=== PATIENT | male | born 1965 | race Caucasian/White ===

== ENCOUNTER 2016-10-28 11:51 | Observation (INO) | payer BC ==
[2016-10-28] MEDS ORDERED: Aspirin 81 MG Tab.Chew PO ONE (12:12)
[2016-10-28] MEDS ORDERED: Metoprolol Tartrate 5 MG/5 ML SDV IVPUSH ONE (13:34)
[2016-10-28] MEDS ORDERED: Zolpidem 5 MG Tab PO PRN (15:26)
[2016-10-28] MEDS ORDERED: ALPRAZolam 0.25 MG Tab PO PRN (15:29)
[2016-10-28] MEDS ORDERED: LOSARTAN 50 MG PO SCH (15:30)
[2016-10-28] MEDS: METOPROLOL SUCCINATE 25 MG PO SCH (16:24)
[2016-10-28] MEDS: AMLODIPINE 5 MG PO SCH (16:24)
--- NOTE | 2016-10-28 18:16 | CR ---
DATE OF SERVICE: 10/28/16 CLINICAL DATA: chest pain AP PORTABLE CHEST Comparison is made to a prior exam dated 09/08/11. The patient has taken a poor inspiration. The heart size is normal. There is calcification of the aortic arch. The lungs are clear. No pneumothorax. No pleural effusions. No areas of consolidation. No other significant findings. IMPRESSION: No evidence of acute intrathoracic disease. [id number] [facility]
--- NOTE | 2016-10-28 18:21 | CT ---
DATE OF SERVICE: 10/28/16 CLINICAL DATA: left arm weakness UNENHANCED BRAIN CT Multislice acquisition through the brain without IV contrast was performed. Comparison is made to a prior exam dated 08/11/14. No masses or mass effect. No intracranial hemorrhage. No evidence of acute or subacute infarct. No osseous abnormalities. IMPRESSION: No acute intracranial abnormalities. [id number] [facility]
[2016-10-28] MEDS ORDERED: PRAVASTATIN 20 MG PO SCH (20:00)
[2016-10-28] MEDS: ELIQUIS 5 MG PO SCH (20:30)
[2016-10-28] MEDS ORDERED: Acetaminophen 500 MG Tab PO PRN (22:30)
[2016-10-29 06:53] VITALS: BP 135/95
[2016-10-29] MEDS ORDERED: Sodium Chloride 0.9% 10 ML Syringe FLUSH PRN (08:46)
[2016-10-29] MEDS: METOPROLOL SUCCINATE 25 MG PO SCH (09:08)
[2016-10-29] MEDS: AMLODIPINE 5 MG PO SCH (09:10)
[2016-10-29] MEDS: ELIQUIS 5 MG PO SCH (09:10)
[2016-10-29] MEDS ORDERED: Pravastatin 20 MG Tab PO SCH (20:00)
[2016-10-29] MEDS ORDERED: Non-Formulary Medication 1 Each (Apixaban 5 MG) PO SCH (20:00)
[2016-10-30] MEDS ORDERED: Metoprolol Succinate 25 MG Tab.ER PO SCH (08:00)
[2016-10-30] MEDS ORDERED: amLODIPine 5 MG Tab PO SCH (08:00)
[2016-10-30] MEDS ORDERED: Losartan 50 MG Tab PO SCH (08:00)
== END 2016-10-29 11:45 | disposition home or self-care (01) ==
LOC: LB.ED 11:51 → LB.MS 14:10
PROVIDERS: ADMIT Internal Medicine; ATTEND Internal Medicine
DX: R00.0 Tachycardia, unspecified (principal); I45.10 Unspecified right bundle-branch block; I10 Essential (primary) hypertension; Z79.899 Other long term (current) drug therapy
CPT/HCPCS: 36415; 70450; 71010; 80053; 80307; 81001; 84484; 85025; 85379; 85610; 93005; 93306; 96374; 99285; A9270; G0480; G0378; J3490

== ENCOUNTER 2017-12-14 06:35 | Emergency (ER) | payer BC ==
--- NOTE | 2017-12-14 08:21 | EDM.PDOC ---
ED HPI GENERAL MEDICAL PROBLEM - General Chief Complaint: General Stated Complaint: POSSIBLE BLOOD CLOT Time Seen by Provider: 12/14/17 07:30 Source of Information: Reports: Patient History Limitations: Reports: No Limitations - History of Present Illness INITIAL COMMENTS - FREE TEXT/NARRATIVE: According to patient he has chronic skin itching over the anterior legs for a while. he does get infection in his legs and needs antibiotics. He is here in the emergency room today as he has noted pain in his right leg,thigh and groin and he has history of DVT and is on Eliquis. But he skipped a day of Elliquis an dis concerned about DVT. No fever or chills. No SOB or chest pain. No open wound on the legs. Pt has been using several OTC steroid ointment on the legs and also some prescription steroids in the past.No other concerns. Duration: Week(s): (1), Getting Worse Location: Reports: Lower Extremity, Right Quality: Reports: Ache Severity: Mild Improves with: Reports: None Worsens with: Reports: None Associated Symptoms: Denies: Confusion, Chest Pain, Cough, Diaphoresis, Fever/ Chills, Headaches, Loss of Appetite, Nausea/Vomiting, Rash, Seizure, Shortness of Breath, Syncope, Weakness Right Leg Pain Score (Numeric/FACES): 8 - Related Data Allergies Allergy/AdvReac Type Severity Reaction Status Date / Time No Known Allergies Allergy Verified 10/28/16 11:56 Home Meds: Home Meds Apixaban [Eliquis] 5 mg PO BID 10/28/16 [History] Losartan [Cozaar] 50 mg PO DAILY 10/28/16 [History] Metoprolol Succinate [Toprol XL] 25 mg PO DAILY 10/28/16 [History] Pravastatin Sodium [Pravachol] 20 mg PO QPM 10/28/16 [History] amLODIPine Besylate [Amlodipine Besylate] 5 mg PO DAILY 10/28/16 [History] Past Medical History Cardiovascular History: Reports: Blood Clots/VTE/DVT, Hypertension, Other (See Below) Other Cardiovascular History: DVTx4 Musculoskeletal History: Reports: Back Pain, Chronic, Other (See Below) Other Musculoskeletal History: surgery for degloved right pointer finger Neurological History: Reports: Concussion, Other (See Below) Other Neuro History: Fell and hit head last year Social & Family History - Tobacco Use Smoking Status *Q: Never Smoker - Alcohol Use Days Per Week of Alcohol Use: 1 Number of Drinks Per Day: 6 Total Drinks Per Week: 6 - Recreational Drug Use Recreational Drug Use: Yes Drug Use in Last 12 Months: No ED ROS GENERAL - Review of Systems Review Of Systems: See Below Constitutional: Denies: Fever, Chills, Night Sweats, Diaphoresis HEENT: Denies: Rhinitis, Throat Pain, Throat Swelling, Vision Change Respiratory: Denies: Shortness of Breath, Wheezing, Cough, Sputum Cardiovascular: Denies: Chest Pain, Lightheadedness GI/Abdominal: Denies: Abdominal Pain, Nausea, Vomiting : Denies: Dysuria, Flank Pain Musculoskeletal: Denies: Joint Pain, Joint Swelling Skin: Reports: Bruising, Pruritis, Rash, Erythema Neurological: Denies: Confusion, Dizziness, Headache ED EXAM, GENERAL - Physical Exam Exam: See Below Exam Limited By: No Limitations General Appearance: Alert, WD/WN, No Apparent Distress Eye Exam: Bilateral Eye: EOMI, PERRL Ears: Normal External Exam, Normal Canal, Hearing Grossly Normal, Normal TMs Ear Exam: Bilateral Ear: Auricle Normal, Canal Normal, TM normal Nose: Normal Inspection, Normal Mucosa, No Blood Throat/Mouth: Normal Inspection, Normal Lips, Normal Teeth, Normal Gums, Normal Oropharynx, Normal Voice, No Airway Compromise Head: Atraumatic, Normocephalic Neck: Normal Inspection, Supple, Non-Tender, Full Range of Motion Respiratory/Chest: No Respiratory Distress, Lungs Clear, Normal Breath Sounds, No Accessory Muscle Use, Chest Non-Tender Cardiovascular: Normal Peripheral Pulses, Regular Rate, Rhythm, No Edema, No Gallop, No JVD, No Murmur, No Rub GI/Abdominal: Normal Bowel Sounds, Soft, Non-Tender, No Organomegaly, No Distention, No Abnormal Bruit, No Mass Skin Exam: Warm, Other (Both legs: there is large areas of erythem spreading form distal anterior leg all the way into upper leg anteriorly. there are skin abrasion and scabing from chronic excoriations. Mild tenderness to palpation. No abscess felt.) Lymphatic: Adenopathy (pt does have lymphangitis whih start from the large area of erythema over the right leg and follows medial as a pink line extending into medial aspect of the thigh and the groin and ends. Also He has palable right inguinal lymphnodes 1-2 cms soft and tender, both horizontal and vertical chains.) Course - Vital Signs Text/Narrative:: Pt has right leg superficial cellulitis, with lymphangitis and inguinal lymphadenitis.Pt's CBC show white count of 10 and his D-dimer is negative. Pt reassured that he has right anterior leg superficial cellulitis with lymphangitis of the right lower extremity with inguinal lymphadenitis as a sequel of the infection. I have stressed to patient the cause of this infection is his recurrent scratching of the legs. In winter skin gets dry and itchy and patient scratches the skin until he gets open wound and cause cellulitis of the legs, as he claims he has been treated for this several times. I have stress to patient that if he stops scratching the cycle of this infection can be stopped. Advised to apply vaseline petroleum jelly 2-3 times daily to the rash regularly even after redness clear to keep the skin intact. Meanwhile I have started him on levaquin 500mg twice daily for 10 days. Advised to followup in clinic if symptoms worsen. Last Recorded V/S: Last Vital Signs Temp 99.2 F 12/14/17 07:27 Pulse 72 12/14/17 07:27 Resp 20 12/14/17 07:27 BP 134/81 12/14/17 07:27 Pulse Ox 95 12/14/17 07:27 - Orders/Labs/Meds Labs: Laboratory Tests 12/14/17 12/14/17 Range/Units 07:05 07:05 WBC 10.6 (4.0-11.0) K/uL RBC 4.86 (4.50-6.50) M/uL Hgb 14.3 (13.0-18.0) g/dL Hct 42.6 (40.0-54.0) % MCV 88 (76-96) fL MCH 29.4 (27.0-32.0) pg MCHC 33.6 (31.0-35.0) g/dL RDW 13.6 (11.0-16.0) % Plt Count 238 (150-400) K/uL MPV 9.4 (6.0-10.0) fL Neut % (Auto) 75.7 H (45.0-70.0) % Lymph % (Auto) 11.8 L (20.0-40.0) % [place] % (Auto) 9.7 (3.0-10.0) % Eos % (Auto) 2.4 (1.0-5.0) % Baso % (Auto) 0.4 (0.0-0.5) % Neut # (Auto) 8.02 H (2.00-7.50) K/uL Lymph # (Auto) 1.25 L (1.50-4.00) K/uL [place] # (Auto) 1.03 H (0.20-0.80) K/uL Eos # (Auto) 0.25 (0.04-0.40) K/uL Baso # (Auto) 0.04 (0.02-0.10) K/uL D-Dimer, Quantitative 238 (0-400) ng/mL Departure - Departure Time of Disposition: 08:00 Disposition: Home, Self-Care 01 Condition: Fair Clinical Impression: Cellulitis of right leg, Acute lymphangitis of right lower extremity, Inguinal lymphadenitis - Discharge Information Instructions: Lymphangitis, Adult, Cellulitis, Adult, [id number] Referrals: PCP,None [Primary Care Provider] - Forms: ED Department Discharge Additional Instructions: Vasoline petroleum jelly to bilat lower legs 2x a day. Take Levoquin 500mg daily for 10 days. return to primary MD if any problems - Problem List & Annotations (1) Acute lymphangitis of right lower extremity SNOMED Code(s): 7860566 Code(s): L03.125 - ACUTE LYMPHANGITIS OF RIGHT LOWER LIMB Status: Acute (2) Cellulitis of right leg SNOMED Code(s): 545277599 Code(s): L03.115 - CELLULITIS OF RIGHT LOWER LIMB Status: Acute (3) Inguinal lymphadenitis SNOMED Code(s): 17501214 Code(s): I88.9 - NONSPECIFIC LYMPHADENITIS, UNSPECIFIED Status: Acute - Problem List Review Problem List Initiated/Reviewed/Updated: Yes - Assessment/Plan Assessment:: Right leg cellulitis of right leg with lymphangitis and right inguinal lymphadenitis Plan: Pt has right leg superficial cellulitis, with lymphangitis and inguinal lymphadenitis.Pt's CBC show white count of 10 and his D-dimer is negative. Pt reassured that he has right anterior leg superficial cellulitis with lymphangitis of the right lower extremity with inguinal lymphadenitis as a sequel of the infection. I have stressed to patient the cause of this infection is his recurrent scratching of the legs. In winter skin gets dry and itchy and patient scratches the skin until he gets open wound and cause cellulitis of the legs, as he claims he has been treated for this several times. I have stress to patient that if he stops scratching the cycle of this infection can be stopped. Advised to apply vaseline petroleum jelly 2-3 times daily to the rash regularly even after redness clear to keep the skin intact. Meanwhile I have started him on levaquin 500mg twice daily for 10 days. elevation of the leg and tylenol as needed for pain.Advised to followup in clinic if symptoms worsen.
[2017-12-14 09:48] VITALS: BP 133/98
== END 2017-12-14 08:04 | disposition home or self-care (01) ==
LOC: LB.ED 06:35
DX: L03.125 Acute lymphangitis of right lower limb (principal); I88.9 Nonspecific lymphadenitis, unspecified; L03.115 Cellulitis of right lower limb; Z79.899 Other long term (current) drug therapy
CPT/HCPCS: 36415; 85025; 85379; 99283

== ENCOUNTER 2019-07-07 12:59 | Emergency (ER) | payer BC ==
[2019-07-07 13:14] VITALS: PULSE 66
[2019-07-07 13:21] VITALS: BP 135/81
--- NOTE | 2019-07-07 20:36 | ER ---
REASON FOR EMERGENCY ROOM VISIT: Right leg swelling and redness. 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 He had an initial bout of deep vein thrombosis at that time, which was treated with Coumadin and he discontinued this after 6 months' time. Shortly thereafter, he had a recurrent DVT and was again placed on Coumadin. By 2004, he once again discontinued his Coumadin and shortly thereafter developed a deep vein thrombosis. He has had 1 or 2 episodes in addition to this, but he has been on Eliquis for the past 2 years and has not had any recurrent episodes of deep vein thrombosis. For the past 5 years or so, he has had trouble with varying degrees of cellulitis and dermatitis involving his lower legs. He has had intermittent swelling off and on. He has tried compression stockings and they make his legs itch even more. He has been to a dietetic technician registered and currently is on an antifungal cream. He has been on antifungal cream for 2 weeks' time. This was prescribed to him by dietetic technician registered whom he has seen in [place]. After about 10 days' use of this cream, he had an itchy dermatitis involving his right lower leg had all but cleared up. However, he has noticed in the past day or 2, some increased redness and itching and this has been somewhat uncomfortable and he has noted some mild increase in edema of his right lower leg. He has not had any fever or chills. He denies any trauma. He has had cellulitis involving that leg and has visited the emergency room here for that approximately a year and a half ago whereupon he was diagnosed with cellulitis and lymphangitis. He denies any shortness of breath. He does admit that he has chronic lower leg edema, which lately has been worse on the right than on the left. He has had some mild discoloration of his lower legs in the distal half consistent with stasis dermatitis. PAST MEDICAL HISTORY: 1. Recurrent DVT as mentioned above. 2. History of recurrent cellulitis and dermatitis. 3. History of hypertension. 4. Hypercholesterolemia. 5. History of alcohol abuse. MEDICATIONS: Amlodipine, metoprolol, pravastatin, losartan, and Eliquis. Please see electronic medical record for dosage. ALLERGIES: NONE TO MEDICATIONS. REVIEW OF SYSTEMS: Pertinent positives and negatives as listed in the HPI. PHYSICAL EXAMINATION: GENERAL: He is a calm, very talkative man in no acute distress. VITAL SIGNS: He is afebrile. Blood pressure is 135/81, heart rate is 66, respiratory rate is 18, O2 sats 95% on room air. HEENT: No scleral icterus or conjunctivitis. Oropharynx is normal. NECK: Supple. No adenopathy. CHEST: Clear. CARDIAC: Regular rate without murmur. ABDOMEN: Soft, nontender. No hepatomegaly. EXTREMITIES: He has some mild early changes of stasis dermatitis bilaterally with pigmentation of his lower leg down to the level of the ankle. He has some slight edema on the left and more is evident on the right side where he has an erythematous warm rash with some evidence of excoriation from itching. There are no pustules noted. The increased tenderness is localized to the anterior lower leg area. He does have some mildly tender inguinal nodes suggesting adenopathy secondary to his cellulitis. LABORATORY DATA: CBC is normal with a normal white count. His D-dimer is within normal limits. IMPRESSION: 1. Cellulitis. 2. Venous stasis dermatitis with possible recurring skin infections. 3. History of multiple deep vein thromboses. 4. Probable venous insufficiency. PLAN: I placed him on Keflex 500 mg q.i.d. x7 days, and I feel that he should return to see his dietetic technician registered to see if anything else should be given regarding his persistent itching of his lower leg. I advised him to continue with the cream, which is an antifungal cream as prescribed by his dietetic technician registered. I also recommended that he bathe his lower legs in warm soapy water and wash them with bactericidal soap twice a day and then apply his cream. I do not feel that he has DVT based on his normal D-dimer as well as the clinical presentation. I explained to them how venous insufficiency can lead to these problems and the physiology behind it. I explained why it is important for him to ambulate as much as possible to get the leg elevated when he can if he is relaxing or lying on the couch and to reconsider wearing compressive stockings. He and his understand and agree with this plan. All questions were answered. HERRERA /[id number]
== END 2019-07-07 14:15 | disposition home or self-care (01) ==
LOC: LB.ED 12:59
DX: L03.115 Cellulitis of right lower limb (principal); I87.2 Venous insufficiency (chronic) (peripheral); I10 Essential (primary) hypertension; Z86.718 Personal history of other venous thrombosis and embolism
CPT/HCPCS: 36415; 85025; 85379; 99283

== ENCOUNTER 2020-07-31 09:10 | Emergency (ER) | payer BC ==
[2020-07-31] MEDS: Aspirin 81 MG Tab.Chew PO ONE (09:35)
--- NOTE | 2020-07-31 10:03 | EDM.PDOC ---
ED HPI GENERAL MEDICAL PROBLEM - General Stated Complaint: COLD SWEATS, CHEST PAIN, SOB Time Seen by Provider: 07/31/20 09:15 Source of Information: Reports: Patient History Limitations: Reports: No Limitations - History of Present Illness INITIAL COMMENTS - FREE TEXT/NARRATIVE: Patient is a 54 y/o male, who presents with chills, nights sweats, substernal chest pain, and shortness of breath x 1 day. The shortness of breath and chest pain comes and goes, and occur during rest. He describes the chest pain as tight, intermittent, and non-radiating. Associated sore throat, diarrhea, and nausea. He denies any cough, vomiting, abd pain, bloody or dark stools, AMES, or dizziness. Upon further questioning, patient states that he has nitro at home for intermittent chest pain, but never takes it. He has not seen cardiology or had a stress test. FHx significant for DE in males in their 50s and patient with risk factors (overweight, HLD, HTN). - Related Data Allergies Allergy/AdvReac Type Severity Reaction Status Date / Time No Known Allergies Allergy Verified 06/15/18 07:49 Home Meds: Home Meds Apixaban [Eliquis] 5 mg PO BID 10/28/16 [History] Losartan [Cozaar] 50 mg PO DAILY 10/28/16 [History] Metoprolol Succinate [Toprol XL] 25 mg PO DAILY 10/28/16 [History] Pravastatin Sodium [Pravachol] 20 mg PO QPM 10/28/16 [History] amLODIPine Besylate [Amlodipine Besylate] 5 mg PO DAILY 10/28/16 [History] Past Medical History HEENT History: Reports: Other (See Below) Other HEENT History: tinnitus in right ear, "nose always stuffed up" Cardiovascular History: Reports: Blood Clots/VTE/DVT, Hypertension, Other (See Below) Other Cardiovascular History: DVTx4 Musculoskeletal History: Reports: Back Pain, Chronic, Other (See Below) Other Musculoskeletal History: surgery for degloved right pointer finger Neurological History: Reports: Concussion, Other (See Below) Other Neuro History: Fell and hit head last year Social & Family History - Family History Family Medical History: No Pertinent Family History - Caffeine Use Caffeine Use: Reports: Soda ED ROS GENERAL - Review of Systems Review Of Systems: See Below Constitutional: Reports: Chills, Night Sweats HEENT: Reports: Throat Pain Respiratory: Reports: Shortness of Breath Cardiovascular: Reports: Chest Pain GI/Abdominal: Reports: Diarrhea : Reports: No Symptoms Musculoskeletal: Reports: No Symptoms Skin: Reports: No Symptoms Neurological: Reports: No Symptoms Psychiatric: Reports: No Symptoms ED EXAM, GENERAL - Physical Exam Exam: See Below Exam Limited By: No Limitations General Appearance: Alert, No Apparent Distress Nose: Normal Inspection, Normal Mucosa Throat/Mouth: Normal Inspection, Normal Lips, Normal Teeth, Normal Gums, Normal Voice, No Airway Compromise, Other (left tonsillar swelling; no exudates; airway patent; no drooling) Head: Atraumatic, Normocephalic Neck: Normal Inspection, Supple Respiratory/Chest: No Respiratory Distress, Lungs Clear, Normal Breath Sounds, No Accessory Muscle Use, Chest Non-Tender Cardiovascular: Normal Peripheral Pulses, Regular Rate, Rhythm, No Edema, No Murmur Peripheral Pulses: 2+: Radial (L), Radial (R) GI/Abdominal: Normal Bowel Sounds, Soft, Non-Tender, No Distention Extremities: Normal Inspection, Normal Range of Motion, No Pedal Edema, Normal Capillary Refill Neurological: Alert, Oriented, CN II-XII Intact, Normal Cognition, Normal Gait, No Motor/Sensory Deficits Psychiatric: Normal Affect, Normal Mood Skin Exam: Warm, Dry, Intact, Normal Color, No Rash #1 Interpretation EKG Date: 07/31/20 Time: 10:09 Rhythm: NSR Rate (Beats/Min): 77 [place]: Normal P-Wave: Present QRS: Normal ST-T: Normal QT: Normal Comparison: Change From Previous EKG EKG Interpretation Comments: flattening t waves in anterior leads (possible anterior infarct), otherwise unchanged from previous EKG Course - Vital Signs Text/Narrative:: All labs unremarkable. Baby aspirin and fluids given. Patient is pain free. Will schedule outpatient stress test for patient next Thursday. Take baby aspirin daily. Return to the ED for fever >102, unable to tolerate fluids, difficulty breathing/swallowing, and/or persistent/worsening chest pain/SOB. Last Recorded V/S: Last Vital Signs Temp 36.9 C 07/31/20 10:13 Pulse 80 07/31/20 10:13 Resp 16 07/31/20 10:13 BP 144/86 H 07/31/20 10:13 Pulse Ox 95 07/31/20 10:13 - Orders/Labs/Meds Orders: Active Orders 24 hr Category Date Time Status EKG Documentation Completion [RC] ASDIRECTED Care 07/31/20 09:29 Active Sodium Chloride 0.9% [Normal Saline] 1,000 ml Med 07/31/20 09:45 Active IV ASDIRECTED Isolation [COMM] Routine Oth 07/31/20 09:36 Active Medication Orders Sodium Chloride (Normal Saline) 1,000 mls @ 1,000 mls/hr IV ASDIRECTED ROSA ELENA Last Admin: 07/31/20 10:25 Dose: 1,000 mls/hr Documented by: EVON Labs: Laboratory Tests 07/31/20 07/31/20 07/31/20 Range/Units : 09:50 09:50 WBC 5.2 (4.0-11.0) K/uL RBC 4.94 (4.50-6.50) M/uL Hgb 15.3 (13.0-18.0) g/dL Hct 44.2 (40.0-54.0) % MCV 90 (76-96) fL MCH 31.0 (27.0-32.0) pg MCHC 34.6 (31.0-35.0) g/dL RDW 12.8 (11.0-16.0) % Plt Count 269 D (150-400) K/uL MPV 9.0 (6.0-10.0) fL Neut % (Auto) 70.2 H (45.0-70.0) % Lymph % (Auto) 14.1 L (20.0-40.0) % [place] % (Auto) 13.4 H (3.0-10.0) % Eos % (Auto) 1.3 (1.0-5.0) % Baso % (Auto) 1.0 H (0.0-0.5) % Neut # (Auto) 3.67 (2.00-7.50) K/uL Lymph # (Auto) 0.74 L (1.50-4.00) K/uL [place] # (Auto) 0.70 (0.20-0.80) K/uL Eos # (Auto) 0.07 (0.04-0.40) K/uL Baso # (Auto) 0.05 (0.02-0.10) K/uL Sodium 138 (136-145) mmol/L Potassium 3.9 (3.5-5.1) mmol/L Chloride 102 (98-107) mmol/L Carbon Dioxide 24.3 (21.0-32.0) mmol/L Anion Gap 15.6 H (5.0-15.0) mmol/L BUN 16 (8-26) mg/dL Creatinine 1.06 (0.70-1.30) mg/dL Est Cr Clr Drug Dosing 82.88 mL/min Estimated GFR (MDRD) > 60 (>60) MLS/MIN BUN/Creatinine Ratio 15.1 (6-25) Glucose 114 H (74-100) mg/dL Calcium 9.2 (8.5-10.1) mg/dL Total Bilirubin 0.4 (0.0-1.0) mg/dL AST 23 (15-37) U/L ALT 35 (12-78) U/L Alkaline Phosphatase 78 (46-116) U/L Troponin I < 0.017 (0.000-0.060) ng/mL Total Protein 8.5 H (6.4-8.2) g/dL Albumin 3.8 (3.4-5.0) g/dL Globulin 4.7 H (2.2-4.2) g/dL Albumin/Globulin Ratio 0.8 (0.8-2.0) SARS CoV-2 RNA Rapid MAGGIE Negative Meds: Medications Generic Name Dose Route Start Last Admin Trade Name Freq PRN Reason Stop Dose Admin Sodium Chloride 1,000 mls @ 1,000 mls/hr 07/31/20 09:45 07/31/20 10:25 Normal Saline IV 1,000 mls/hr ASDIRECTED ROSA ELENA Administration Discontinued Medications Generic Name Dose Route Start Last Admin Trade Name Freq PRN Reason Stop Dose Admin Aspirin 324 mg 07/31/20 09:35 07/31/20 09:35 Aspirin PO 07/31/20 09:36 324 mg ONETIME ONE Administration Departure - Departure Time of Disposition: 11:00 Disposition: Home, Self-Care 01 Condition: Good Clinical Impression: Chest pain Qualifiers: Chest pain type: unspecified Qualified Code(s): R07.9 - Chest pain, unspecified Referrals: PCP,None [Primary Care Provider] - Additional Instructions: Will schedule outpatient stress test for patient next Thursday. Take baby aspirin daily. Return to the ED for fever >102, unable to tolerate fluids, difficulty breathing/swallowing, and/or persistent/worsening chest pain/SOB. Sepsis Event Note (ED) - Focused Exam Vital Signs: Vital Signs Temp Pulse Resp BP Pulse Ox 07/31/20 10:13 36.9 C 80 16 144/86 H 95 - My Orders Last 24 Hours: My Active Orders 07/31/20 09:29 EKG Documentation Completion [RC] ASDIRECTED 07/31/20 09:36 Isolation [COMM] Routine 07/31/20 09:45 Sodium Chloride 0.9% [Normal Saline] 1,000 ml IV ASDIRECTED - Assessment/Plan Last 24 Hours: My Active Orders 07/31/20 09:29 EKG Documentation Completion [RC] ASDIRECTED 07/31/20 09:36 Isolation [COMM] Routine 07/31/20 09:45 Sodium Chloride 0.9% [Normal Saline] 1,000 ml IV ASDIRECTED
[2020-07-31 10:17] VITALS: BP 144/86; PULSE 80
--- NOTE | 2020-07-31 10:24 | CR ---
DATE OF SERVICE: 07/31/20 CLINICAL DATA: chest pain/sob AP CHEST: Comparison is made to a prior exam dated 06/08/19. The heart size is normal. There is calcification of the aortic arch. The lungs are clear. No pneumothorax. No pleural effusions. No evidence of acute intrathoracic disease. [id number] [facility]
[2020-07-31] MEDS: Sodium Chloride 0.9% 1,000 ML IV SCH (10:25)
== END 2020-07-31 11:10 | disposition home or self-care (01) ==
LOC: LB.ED 09:10
DX: R07.9 Chest pain, unspecified (principal); I10 Essential (primary) hypertension; Z86.718 Personal history of other venous thrombosis and embolism; Z79.01 Long term (current) use of anticoagulants; Z79.899 Other long term (current) drug therapy; Z20.828 Contact with and (suspected) exposure to other viral communicable diseases
CPT/HCPCS: 36415; 71045; 80053; 84484; 85025; 87430; 87804; 87804-59; 93005; 99283; 99285-25; A9270-GY; J7030; U0002

== ENCOUNTER 2021-02-11 07:41 | Emergency (ER) | payer BC ==
[2021-02-11] MEDS: Ketorolac 60 MG/2 ML SDV IM ONE (08:02)
[2021-02-11] MEDS: HYDROmorphone 2 MG/ML SDV IM ONE (08:03)
[2021-02-11 08:16] VITALS: BP 171/102; PULSE 78
[2021-02-11] MEDS: Ketorolac 60 MG/2 ML SDV ONE (08:33)
[2021-02-11] MEDS: HYDROmorphone 2 MG/ML SDV ONE (08:33)
--- NOTE | 2021-02-11 09:25 | CR ---
DATE OF SERVICE: 02/11/21 CLINICAL DATA: Low back pain after falling. LUMBAR SPINE: Comparison is made to a prior exam dated 07/07/17. The vertebral bodies are of average height. There is very slight anterolisthesis of L4 on L5. No acute fracture or dislocation. There are small disc margin spurs at multiple levels. There is slight narrowing of the L4-5 disc space. There is facet joint hypertrophy throughout the lumbar spine. No lytic or blastic bone lesions. There is calcification of the abdominal aorta. [id number] [facility]
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
== END 2021-02-11 08:55 | disposition home or self-care (01) ==
LOC: LB.ED 07:41
DX: S30.0XXA Contusion of lower back and pelvis, initial encounter (principal); Z86.718 Personal history of other venous thrombosis and embolism; Z79.01 Long term (current) use of anticoagulants; W18.30XA Fall on same level, unspecified, initial encounter; Y92.009 Unspecified place in unspecified non-institutional (private) residence as the place of occurrence of the external cause
CPT/HCPCS: 36415; 72100; 80048; 81001; 85025; 96372; 99283; 99283-25; J1170; J1885